=== PATIENT | female | born 1975 | race Caucasian/White ===

== ENCOUNTER 2017-07-20 11:12 | Inpatient (IN) | payer MEDICAID ==
[~2017-07-20] VITALS: Ht 152.4 cm; Wt 54.1 kg
[2017-07-20 11:39] VITALS: Ht 152.4 cm; Wt 54.1 kg
[2017-07-20 13:13] LABS: PLATELET COUNT 317 x10^3mcL (130-400)
[2017-07-20 13:15] LABS: RED CELL DISTRIBUTION WIDTH 15.1 % (11.5-14.5)
[2017-07-20 13:25] LABS: CALCIUM 8.4 mg/dL (8.5-10.1); CARBON DIOXIDE 23.6 mmol/L (21-32); CREATININE SERUM 1.1 mg/dL (0.6-1.0); POTASSIUM SERUM 3.4 mmol/L (3.5-5.1)
[2017-07-20 13:29] LABS: BAND NEUTROPHIL 4 % (0-10); BILIRUBIN TOTAL 0.5 mg/dL (0.20-1.00); MONOCYTE 7 % (0-7); SEGMENTED NEUTROPHILS 88 % (37-75); TOTAL PROTEIN, SERUM 7.8 g/dL (6.4-8.2)
[2017-07-20 13:30] LABS: rbc morphology (normal/abnorm) NORMAL (NORMAL)
[2017-07-20 13:33] LABS: ALBUMIN 3.3 g/dL (3.4-5.0)
[2017-07-20 16:16] VITALS: BP 107/65
[2017-07-20 17:00] VITALS: BP 106/67
[2017-07-20 17:12] LABS: T3 TOTAL 0.39 ng/mL
[2017-07-20 18:12] LABS: FREE T4 1.19 ng/dL (0.76-1.46); FREE THYROXINE INDEX 2.9 ug/dL (1.4-4.5)
[2017-07-20 18:16] LABS: CHOLESTEROL/HDL RATIO 2.1
[2017-07-20 21:00] VITALS: BP 102/59
[2017-07-21 06:30] VITALS: BP 92/59
[2017-07-21 07:20] LABS: PLATELET COUNT 259 x10^3mcL (130-400)
[2017-07-21 07:24] LABS: RED CELL DISTRIBUTION WIDTH 15.5 % (11.5-14.5)
[2017-07-21 07:54] LABS: CALCIUM 8.1 mg/dL (8.5-10.1); CARBON DIOXIDE 20.1 mmol/L (21-32); CHLORIDE SERUM 106 mmol/L (98-107); CREATININE SERUM 0.8 mg/dL (0.6-1.0); GFR1 > 60 mL/min; GLUCOSE SERUM 130 mg/dL (74-106); MAGNESIUM 2.4 mg/dL (1.8-2.4); PHOSPHOROUS 4.3 mg/dL (2.5-4.9); POTASSIUM SERUM 3.7 mmol/L (3.5-5.1); SODIUM SERUM 137 mmol/L (136-145)
[2017-07-21 09:32] VITALS: BP 96/61
[2017-07-21 10:05] LABS: BAND NEUTROPHIL 17 % (0-10); BASOPHIL 0 % (0-2); MONOCYTE 2 % (0-7); SEGMENTED NEUTROPHILS 79 % (37-75)
[2017-07-21 10:06] LABS: rbc morphology (normal/abnorm) ABNORMAL (NORMAL)
[2017-07-21 14:20] VITALS: BP 106/65
[2017-07-21 16:34] VITALS: BP 111/77
[2017-07-21 20:46] VITALS: BP 115/80
[2017-07-22 05:42] VITALS: BP 123/78
[2017-07-22 06:32] LABS: BASOPHIL % 0.1 % (0-2); PLATELET COUNT 272 x10^3mcL (130-400)
[2017-07-22 06:56] LABS: RED CELL DISTRIBUTION WIDTH 15.2 % (11.5-14.5)
[2017-07-22 07:07] LABS: CALCIUM 7.6 mg/dL (8.5-10.1); CARBON DIOXIDE 24.6 mmol/L (21-32); CHLORIDE SERUM 107 mmol/L (98-107); CREATININE SERUM 0.7 mg/dL (0.6-1.0); GFR1 > 60 mL/min; GLUCOSE SERUM 95 mg/dL (74-106); MAGNESIUM 2.2 mg/dL (1.8-2.4); PHOSPHOROUS 2.1 mg/dL (2.5-4.9); POTASSIUM SERUM 3.4 mmol/L (3.5-5.1); SODIUM SERUM 140 mmol/L (136-145)
[2017-07-22 09:00] VITALS: BP 122/81
[2017-07-22 10:56] VITALS: BP 122/81
[2017-07-22] MEDS ORDERED: COL100 PO (12:20)
[2017-07-22] MEDS ORDERED: APAP/HYDROCODON1 T13 PO (12:24)
[2017-07-22 14:20] VITALS: BP 139/87
== END 2017-07-22 16:18 | disposition home or self-care (01) | DRG 513 ==
LOC: ED 11:12 → DU 14:58
PROVIDERS: Emergency Medicine; Family Medicine; Surgery
PROC: 0U9 Female Reproductive System, Drainage (ICD-10-PCS; principal; 2017-07-20 18:00)
DX: N83.201 Unspecified ovarian cyst, right side (principal); E44.1 Mild protein-calorie malnutrition; E87.6 Hypokalemia; D64.9 Anemia, unspecified; N12 Tubulo-interstitial nephritis, not specified as acute or chronic; E83.39 Other disorders of phosphorus metabolism; Z68.21 Body mass index [BMI] 21.0-21.9, adult
CPT/HCPCS: 83880; 84439; 90658; 94150; J0330; J1885; J2175; J2250; J2270; J2405; J2543; J2704; J2710; J3010; J3490; J7030; J7120

== ENCOUNTER 2019-04-17 04:09 | Emergency (ER) | payer MEDICAID ==
[~2019-04-17] VITALS: Ht 167.6 cm; Wt 54.0 kg
[~2019-04-17 04:09] MED LIST: APAP/HYDROCODON1 T13 PO; COL100 PO
[2019-04-17 04:11] VITALS: Ht 167.6 cm; Wt 54.0 kg
[2019-04-17 05:53] LABS: BASOPHIL % 0.3 % (0-2)
[2019-04-17 05:54] LABS: PLATELET COUNT 411 x10^3mcL (130-400); RED CELL DISTRIBUTION WIDTH 14.6 % (11.5-14.5)
[2019-04-17 06:01] LABS: CALCIUM 8.1 mg/dL (8.5-10.1); CARBON DIOXIDE 26.8 mmol/L (21-32); CHLORIDE SERUM 102 mmol/L (98-107); CREATININE SERUM 0.6 mg/dL (0.6-1.0); GFR1 > 60 mL/min; GLUCOSE SERUM 98 mg/dL (74-106); POTASSIUM SERUM 3.4 mmol/L (3.5-5.1); SODIUM SERUM 141 mmol/L (136-145)
[2019-04-17 06:06] LABS: ALBUMIN 4.2 g/dL (3.4-5.0); ALKALINE PHOSPHATASE 104 U/L (46-116); ALT/SGPT 18 U/L (14-59); AST/SGOT 17 U/L (15-37)
[2019-04-17 06:08] LABS: TOTAL PROTEIN, SERUM 8.6 g/dL (6.4-8.2)
[2019-04-17 07:35] VITALS: BP 121/75
== END 2019-04-17 07:35 | disposition home or self-care (01) ==
LOC: ED 04:09
DX: M54.6 Pain in thoracic spine (principal); R07.89 Other chest pain
CPT/HCPCS: J1885; J7030; Q0092